=== PATIENT | female | born 1945 | race Caucasian/White ===

== ENCOUNTER 2018-03-07 09:45 | Outpatient (CLI) | payer MEDICARE, BC | END 2018-03-07 09:46 | disposition home or self-care (01) | LOC: BICMAMMO 09:45 | PROVIDERS: ATTEND Internal Medicine | DX: Z13.820 Encounter for screening for osteoporosis (principal); R92.8 Other abnormal and inconclusive findings on diagnostic imaging of breast; M85.852 Other specified disorders of bone density and structure, left thigh | CPT/HCPCS: 77066; 77080; G0279 ==

== ENCOUNTER 2019-06-27 23:05 | Observation (INO) | payer MEDICARE, BC ==
[~2019-06-27 23:05] MED LIST: ISOVUE-370 76%-LOCM 1 ML ONE
[2019-06-28] MEDS ORDERED: Aspirin Chewable 81 MG TAB ONE (00:18)
[2019-06-28] MEDS ORDERED: Ondansetron ODT 4 MG TAB SL PRN (02:28)
[2019-06-28] MEDS ORDERED: Ondansetron PF 4 MG/2 ML Vial IVP PRN (02:28)
[2019-06-28 03:30] VITALS: BMI 33.4
[2019-06-28 05:11] LABS: #Basophils 0.1 thou/uL (0.0-0.2); #Eosinphils 0.2 thou/uL (0.0-0.7); #Lymphocytes 2.2 thou/uL (1.20-3.40); #Monocytes 0.7 thou/uL (0.11-0.59); %Basophils 0.8 % (0.0-1.0); %Eosinophils 3.1 % (0.0-10.0); %Lymphocytes 30.6 % (21.0-51.0); %Monocytes 9.8 % (0.0-10.0); %Neutrophils 55.6 % (42.0-75.0); Hemoglobin 11.6 g/dL (12.0-16.0); Mean Corpuscular HGB CONC 33.8 g/dL (32.0-36.0); Mean Corpuscular Hemoglobin 30.5 pg (27.0-31.0); Mean Corpuscular Volume 90.4 fL (78.0-98.0); Mean Platelet Volume 7.7 fL (7.4-10.4); Platelet Count 226 thou/uL (130-400); RBC Distribution Width 11.4 % (11.5-14.5); Red Blood Cell (RBC) Count 3.81 mill/uL (4.20-5.40); White Blood Cell (WBC) Count 7.1 thou/uL (4.8-10.8)
[2019-06-28 05:43] LABS: ALT (SGPT) 13 U/L (8-55); AST (SGOT) 27 U/L (5-34); Albumin 3.9 g/dL (3.4-4.8); Alkaline Phosphatase 62 U/L (40-110); Anion Gap 12 mmol/L (10-20); BUN (Urea Nitrogen) 22 mg/dL (9.8-20.1); Bilirubin, Total 0.5 mg/dL (0.2-1.2); Calc. Creatinine Clearance 80 mL/min (70-130); Calcium 9.3 mg/dL (7.8-10.44); Carbon Dioxide 24 mmol/L (23-31); Cardiac Risk 2.8 (Less than 4.5); Chloride 105 mmol/L (98-107); Cholesterol 144 mg/dl (< 200 Desired); Estimated GFR-MDRD 70; Globulin 2.9 g/dL (2.4-3.5); Glucose 132 mg/dL (83-110); HDL Cholesterol 51 mg/dL (>60 Neg Risk); LDL Cholesterol, Calculated 76 mg/dL; Magnesium 1.7 mg/dL (1.6-2.6); Potassium 4.4 mmol/L (3.5-5.1); Protein, Total 6.8 g/dL (6.0-8.3); Sodium 137 mmol/L (136-145); Triglycerides 86 mg/dL (Less than 150)
[2019-06-28] MEDS ORDERED: Acetaminophen 325 MG TAB PO PRN (08:21)
[2019-06-28] MEDS ORDERED: Senokot S 8.6-50 MG TAB PO PRN (08:21)
[2019-06-28] MEDS ORDERED: Bisacodyl 10 MG SUPP PR PRN (08:21)
[2019-06-28] MEDS ORDERED: Dextrose 5% in Water 1,000 ML IV PRN (08:26)
[2019-06-28] MEDS ORDERED: Dextrose 50% Abboject 50 ML SYRINGE SLOW IVP PRN (08:26)
--- NOTE | 2019-06-28 08:33 | CT ---
PRELIMINARY REPORT/[facility]/EMERGENCY AFTER HOURS PROCEDURE: PROCEDURE INFORMATION: Exam: CT Abdomen And Pelvis With Contrast Exam date and time: 06/27/2019 11:57 PM Clinical history: 73 years old, female; ER 26. C/O lower abdominal, nausea, generalized weakness. No vomiting. Surgical HX: hysterectomy, cholecystectomy TECHNIQUE: Imaging protocol: Computed tomography of the abdomen and pelvis with intravenous contrast. COMPARISON: No relevant prior studies available. FINDINGS: Lungs: No acute infiltrate in either lung base. Liver: Normal. No mass. Gallbladder and bile ducts: Status post cholecystectomy. No biliary tract dilatation. Pancreas: Normal. No ductal dilation. Spleen: Normal. No splenomegaly. Adrenals: Normal. No mass. Kidneys and ureters: Normal. No hydronephrosis. Stomach and bowel: A few scattered colon diverticuli without evidence of diverticulitis. Appendix: No evidence of appendicitis. Intraperitoneal space: Unremarkable. No free air. No significant fluid collection. Vasculature: Unremarkable. No abdominal aortic aneurysm. Lymph nodes: Unremarkable. No enlarged lymph nodes. Bladder: Unremarkable as visualized. Reproductive: Status post hysterectomy. Bones/joints: Spinal degenerative changes. Lumbar levoscoliosis. Soft tissues: Small fat-containing umbilical hernia. IMPRESSION: 1. No acute intra-abdominal or pelvic process. 2. A few scattered colon diverticuli without evidence of diverticulitis. Thank you for allowing us to participate in the care of your patient. Dictated and Authenticated by: Rustam Lin MD 06/28/2019 12:40 AM Central Time ([place] & [place]) FINAL REPORT CT ABDOMEN AND PELVIS WITH IV CONTRAST: Liver, spleen, pancreas, kidneys, and bowel loops appear unremarkable. No acute intraabdominal proce ss identified. I am in agreement with the preliminary report.
[2019-06-28] MEDS: Escitalopram Oxalate 20 mg Tablet PO SCH (08:54)
[2019-06-28] MEDS: Loratadine 10 MG TAB PO SCH (08:54)
[2019-06-28] MEDS: Famotidine 20 MG TAB PO SCH ×2 (08:55→21:20)
[2019-06-28] MEDS: Enoxaparin Sodium 40 MG/0.4 ML SYRINGE SC SCH (08:57)
[2019-06-28] MEDS ORDERED: SELENIUM PO SCH (09:00)
[2019-06-28] MEDS ORDERED: ASTAXANTHIN PO SCH (09:00)
[2019-06-28] MEDS ORDERED: Aspirin Chewable 81 MG TAB PO SCH (09:00)
--- NOTE | 2019-06-28 09:18 | HP ---
PRIMARY CARE PHYSICIAN: Karen Nuno MD CHIEF COMPLAINT: Slurred speech and generalized weakness. HISTORY OF PRESENT ILLNESS: A 73-year-old female with past medical history significant for brain aneurysm, status post treatment; prior CVAs; diabetes; and hypertension; who was admitted on transfer through the ER from [facility] due to acute onset of slurred speech, slow mentation, and generalized weakness. The patient reportedly started feeling unwell yesterday and was noted by daughter to have slurred speech as well as slow mentation. She also was complaining of generalized weakness as well as abdominal pain described as heaviness. There was no focal weakness, but this was reminiscent of her prior stroke. The patient denied headache, nausea, vomiting, fever, chest pain, but admitted to exertional dyspnea. She also complained of abdominal pain, rated at 4/10, which has improved significantly currently. She has baseline left-sided numbness from prior CVA, which has not changed. Daughter reported that the patient is currently markedly improved, yesterday she had slurred speech and had slow mentation, but she is back to normal currently. She also complained of poor urinary stream as well as some lower abdominal tenderness, but denied dysuria, hematuria, nausea, vomiting, hematemesis, or change in bowel habit. The patient has history of diverticulosis, but noted that the current abdominal pain, which has resolved, is not similar to prior diverticulosis pain. She also denied dizziness, vertigo, loss of consciousness, or leg swelling. PAST MEDICAL HISTORY: 1. Diabetes mellitus. 2. Hypertension. 3. Prior CVAs. 4. Brain aneurysm. 5. Diverticulosis. 6. Obesity. PAST SURGICAL HISTORY: 1. Cholecystectomy. 2. Appendectomy. 3. Craniotomy with treatment of brain aneurysm. 4. Hysterectomy. 5. Tonsillectomy. FAMILY HISTORY: Reviewed, but noncontributory. SOCIAL HISTORY: The patient lives with daughter. Denied alcohol, tobacco, or recreational drug use. The patient is at baseline ambulates by herself and takes care of herself. She wants to be full code and daughter is the surrogate decision maker. ALLERGIES: REPORTS ALLERGIC REACTION TO PENICILLIN AND REACTION IS RASH. ALSO REPORTED SOME ALLERGIC REACTION TO BENZOCAINE. CURRENT HOME MEDICATIONS: 1. Alpha-Lipoic Acid 50 mg daily. 2. Ascorbic acid versus collagen 1 capsule p.o. daily. 3. Astaxanthin 4 mg p.o. daily. 4. Calcium carbonate with vitamin D one tablet p.o. daily. 5. Cetirizine 10 mg p.o. daily. 6. Plavix 75 mg p.o. daily at bedtime. 7. Lexapro 20 mg p.o. daily. 8. Fish oil 1 to 2 capsules p.o. daily at bedtime. 9. NPH insulin 70/30 of 25 units b.i.d. 10. Lisinopril 20 mg b.i.d. 11. Multivitamin with mineral, folic acid 1 tablet p.o. daily. 12. Zofran 4 mg p.o. p.r.n. 13. Selenium 50 mcg p.o. daily. 14. Ubidecarenone (coenzyme Q10) 30 mg p.o. daily. 15. Vitamin E 1 capsule p.o. daily. REVIEW OF SYSTEMS: 12-point review of systems performed, was negative other than pertinent positives and negatives included in the history of present illness. PHYSICAL EXAMINATION: VITAL SIGNS: Temperature 98.5, pulse 66, respiratory rate 16, SpO2 of 93% on room air, and blood pressure is 136/63. GENERAL: Obese elderly female, in no obvious distress. Afebrile. Anicteric. Acyanotic. HEENT: Normocephalic, atraumatic. Oral mucosa is moist. Face is symmetrical. Pupils are reacting to light. NECK: Short thick neck with excess subcutaneous tissue. No obvious JVD or masses appreciated. CARDIOVASCULAR: Regular rhythm and rate with normal heart sounds 1 and 2. RESPIRATORY: Good air entry bilaterally with no crackles or rhonchi or use of accessory muscles. GI: Abdomen is obese, soft, nondistended with normal bowel sounds. Mild lower abdominal tenderness noted. EXTREMITIES: Grossly normal looking, atraumatic, with no edema or erythema. ARTIST MANAGER: Conscious, alert and oriented x3 with appropriate mental status. Cranial nerves 2 through 12 are grossly intact. Face is symmetrical. The patient moves all extremities with symmetrical power of 5-/5. Mild decreased sensation to gross touch on the left side noted. DIAGNOSTIC DATA: CBC showed WBC count of 7.1, hemoglobin of 11.6, MCV of 90.4, and platelets of 226. CMP showed sodium 137, potassium 4.4, chloride 105, CO2 of 24, BUN 22, creatinine 0.81, glucose 132, calcium 9.3, magnesium 1.7, total bilirubin 0.5, AST 27, ALT 13, alkaline phosphatase 62, total protein 6.8, and albumin 3.9. Initial troponin performed yesterday was 0.010. EKG showed sinus bradycardia with rate of 58. No obvious ischemic changes were noted. Chest x-ray showed no acute pathology. CT scan of the brain also showed no acute intracranial abnormality. CT scan of the abdomen and pelvis is pending at this time. ASSESSMENT: 1. Transient ischemic attack. The patient reported some slurred speech and slow mentation as well as generalized weakness, which has improved at this time. She seems back to baseline. Acute metabolic encephalopathy is a concern given urinary symptom of poor stream as well as abdominal pain. 2. Possible acute metabolic encephalopathy. 3. Transient physical deconditioning. 4. Diabetes mellitus, on treatment. 5. Hypertension, adequately controlled. 6. Prior CVAs with mild residual left-sided numbness. 7. Prior brain aneurysm, status post repair. PLAN: 1. We will get MRI of the brain. We will also get echocardiogram of the heart. 2. We will add aspirin to Plavix. 3. We will start sliding scale insulin to get adequate glycemic control. 4. We will monitor blood pressure and restart antihypertensive if needed. 5. We will also get urinalysis with reflex to culture. We will review CT scan of the abdomen with pelvis when available. Further treatment to follow depending on review of other diagnostic tests and hospital course. 6. Code status full code. Daughter is the surrogate decision maker. Job ID: [id number]
[2019-06-28 09:56] LABS: Troponin I 0.012 ng/mL (< 0.028)
[2019-06-28] MEDS: Aspirin 81 mg Enteric Coated Tablet PO SCH (10:01)
[2019-06-28] MEDS: HumaLOG 300 UNITS/3 ML VIAL SC PRN ×3 (11:31→21:20)
--- NOTE | 2019-06-28 12:47 | MRI ---
MRI BRAIN NONCONTRAST: DATE: 06/28/2019 HISTORY: 73 year old female with dysarthria and left upper extremity weakness. Rule out CVA. FINDINGS: The ventricles are normal in size and configuration. There is an approximately 1.7 x 0.4 cm focus of encephalomalacia and gliosis in the left moreno radiata just lateral to the caudate nucleus. There is no other major intra-axial signal abnormality, restricted diffusion, midline shift or any other ma ss effect, recent intra-axial hemorrhage, or extra-axial fluid collection. There is an aneurysm clip near the right carotid terminus. There are old right frontotemporal craniotomy changes. IMPRESSION: 1) old lacunar infarction of left cerebral deep white matter. 2.) Status post aneurysm clipping at right anterior circulation via the right pterional craniotomy. 3) no acute intracranial findings.
--- NOTE | 2019-06-28 12:58 | MRI ---
Magnetic resonance angiogram MRA head noncontrast: DATE: 06/28/2019 HISTORY: 73-year-old female with acute stroke symptoms. TECHNIQUE: 3-D [id number] MRA acquired in multiple axial slabs through [employer] [place]. Source images and 3 -D MIP reconstructions evaluated. FINDINGS: Aneurysm clip at right anterior circulation results in magnetic susceptibility artifact causing blowo ut and nonvisualization of the right carotid terminus and the proximal portion of M1 segment of right MCA, and most of the A1 segment of right INGA. The degree of magnetic susceptibility artifact is not severe, indicating that this clip is nonferromagnetic. In the vessels that are visualized, there is no evidence of aneurysm greater than 3 mm. There is no evidence of high-grade stenosis or oc clusion involving the posterior circulation or anterior circulation. IMPRESSION: 1. 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 2. Otherwise negative.
--- NOTE | 2019-06-28 13:30 | ULT ---
Ultrasound Doppler duplex carotid: DATE: 06/28/2019 HISTORY: 73-year-old female with dysarthria and left upper extremity weakness: Stroke symptoms. TIA versus CVA . TECHNIQUE: Grayscale, color-flow, and spectral analysis, of major arteries of neck. FINDINGS: Mild atherosclerotic plaque at bilateral carotid bulbs extending into internal and external carotid a rteries. Highest peak systolic velocities in the internal carotid arteries are 65 cm/s on the right and 90 cm/ s on the left. Left vertebral artery flow is antegrade. Right vertebral artery flow not detected. IMPRESSION: 1. At least mild atherosclerosis of carotid arteries bilaterally. 2. Right vertebral artery not visualized. 3. No evidence of hemodynamically significant stenosis in the cervical portions of the internal carot id arteries.
[2019-06-28 15:05] LABS: Bacteria/HPF None Seen HPF (None Seen); Bilirubin Negative (Negative); Blood, Urine Negative (Negative); Clarity Clear (Clear); Glucose, Urine (Dipstick) Normal (Negative); Leukocyte Negative Leu/uL (Negative); Nitrite Negative (Negative); Protein, Urine (Dipstick) Negative (Neg-Trace); RBC/HPF 0-3 HPF (0-3); Squamous Epithelial None Seen HPF (0-3); Urobilinogen Normal mg/dL (Less than 2); WBC/HPF None Seen HPF (0-3)
[2019-06-28 15:06] LABS: Urine Culture Reflex No No
[2019-06-28] MEDS ORDERED: FLU VACC TS2019-20(65YR UP)/PF 180 MCG/0.5 ML SYRINGE IM ONE (21:00)
[2019-06-28] MEDS ORDERED: Clopidogrel Bisulfate 75 MG TAB PO SCH (21:00)
[2019-06-28] MEDS ORDERED: Atorvastatin Calcium 40 MG TAB PO SCH (21:00)
[2019-06-29] MEDS: HumaLOG 300 UNITS/3 ML VIAL SC PRN ×2 (06:26→11:37)
[2019-06-29] MEDS: Aspirin 81 mg Enteric Coated Tablet PO SCH (09:39)
[2019-06-29] MEDS: Famotidine 20 MG TAB PO SCH (09:39)
[2019-06-29] MEDS: Loratadine 10 MG TAB PO SCH (09:39)
[2019-06-29] MEDS: Escitalopram Oxalate 20 mg Tablet PO SCH (09:39)
[2019-06-29] MEDS: Enoxaparin Sodium 40 MG/0.4 ML SYRINGE SC SCH (09:39)
--- NOTE | 2019-06-29 11:30 | PDOC.EVN ---
Event Note - Event Note Event Note: discharge summary dictated. #[id number]
[2019-06-29 11:39] VITALS: TEMP 98
[2019-06-29] MEDS ORDERED: Lisinopril 20 MG TAB PO SCH (11:45)
--- NOTE | 2019-06-29 12:04 | DIS ---
DATE OF ADMISSION: 06/28/2019 DATE OF DISCHARGE: 06/29/2019 PRIMARY CARE PHYSICIAN: Dr. Karen Nuno. DISCHARGE DIAGNOSES: 1. Transient ischemic attack. 2. Physical deconditioning. 3. Diabetes mellitus, on treatment. 4. Hypertension, on treatment. 5. History of brain aneurysm, status post repair. 6. Prior cerebrovascular accidents with mild residual left-sided numbness. 7. Obesity. 8. Diverticulosis. HOSPITAL COURSE: A 73-year-old female with past medical history significant for brain aneurysm, status post treatment, prior CVAs, diabetes, and hypertension, admitted on transfer from [facility] due to acute onset of slurred speech, slow mentation, and generalized weakness. Symptoms soon improved overnight with the patient's verbalizing appropriately and ambulating well. Impression of TIA was made to rule out acute CVA. However, further evaluation with MRI of the brain as well as MRA of the brain showed no acute pathology. However, the patient was found to have mild atherosclerosis on carotid Dopplers. Echocardiogram performed also showed mild mitral regurgitation with normal ejection fraction. Possible acute encephalopathy was considered from possible UTI, but urinalysis was unremarkable. The patient remained stable and was subsequently discharged home. PHYSICAL EXAMINATION: VITAL SIGNS: Temperature 98.1, pulse 72, respiratory rate 16, SpO2 of 95% on room air, blood pressure is 137/88. GENERAL: Healthy-looking elderly female, in no distress. Afebrile. Anicteric. Acyanotic. HEENT: Normocephalic, atraumatic. Oral mucosa is moist. CARDIOVASCULAR: Regular rhythm and rate with normal heart sounds 1 and 2. RESPIRATORY: Good air entry bilaterally with no crackle or rhonchi or use of accessory muscles. GI: Full, soft, nontender, nondistended with normal bowel sounds. Mild lower abdominal tenderness appreciated. EXTREMITIES: Grossly normal looking, atraumatic with no edema or erythema. SHEET METAL CONTRACTOR: Conscious, alert, oriented x3 with appropriate mental status. Cranial nerves 2 through 12 are grossly intact. The patient is ambulant. DISCHARGE CONDITION: Improved. DISCHARGE DISPOSITION: Home. DISCHARGE MEDICATIONS: 1. Alpha-lipoic acid 50 mg p.o. daily. 2. Ascorbic acid with collagen 1 capsule p.o. daily. 3. Astaxanthin 4 mg p.o. daily. 4. Calcium with vitamin D 1 tablet daily. 5. Zyrtec 10 mg p.o. daily. 6. Plavix 75 mg p.o. daily at bedtime. 7. Lexapro 20 mg p.o. daily. 8. Fish oil 2 capsules p.o. daily at bedtime. 9. Insulin NPH 70/30, 25 units subcutaneously b.i.d. 10. Lisinopril 20 mg p.o. b.i.d. 11. Multivitamin with iron, folic acid 1 tablet p.o. daily. 12. Zofran p.r.n. 13. Selenium 50 mcg p.o. daily. 14. CoQ10 of 30 mg p.o. daily. 15. Vitamin E 100 mg p.o. daily. 16. Aspirin 81 mg p.o. daily. 17. Lipitor 40 mg p.o. daily at bedtime. FOLLOWUP: Follow up with PCP in 1 week. Job ID: [id number]
[2019-06-29 15:50] VITALS: BP 150/70
== END 2019-06-29 14:08 | disposition home or self-care (01) ==
LOC: ERS 23:05 → 2SE 06-28 01:44
PROVIDERS: ADMIT Internal Medicine; ATTEND Internal Medicine
DX: G45.9 Transient cerebral ischemic attack, unspecified (principal); E11.9 Type 2 diabetes mellitus without complications; I10 Essential (primary) hypertension; I69.398 Other sequelae of cerebral infarction; R20.0 Anesthesia of skin; K57.30 Diverticulosis of large intestine without perforation or abscess without bleeding; E66.9 Obesity, unspecified; Z68.33 Body mass index [BMI] 33.0-33.9, adult; Z79.02 Long term (current) use of antithrombotics/antiplatelets; Z79.4 Long term (current) use of insulin; Z79.899 Other long term (current) drug therapy; Z88.0 Allergy status to penicillin; Z88.8 Allergy status to other drugs, medicaments and biological substances; Z98.890 Other specified postprocedural states
CPT/HCPCS: 70544; 70551; 74177; 80053; 80061; 81001; 82607; 82746; 82962 ×2; 83735; 84484; 85025; 90662; 93005; 93306; 93880; 96372 ×2; 97116; 97139 ×3; 99285; G0008; G0378 ×3; 36415; 36416; 90471; J1650; Q9966

== ENCOUNTER 2020-05-27 10:40 | Outpatient (CLI) | payer MEDICARE, BC ==
--- NOTE | 2020-05-27 11:20 | MMO ---
Bilateral MAMMO Bilat Screen [facility]. CLINICAL HISTORY: Patient is 74 years old and is seen for screening. The patient has no family history of breast cancer. The patient has no personal history of cancer. VIEWS: The views performed were: bilateral craniocaudal with tomosynthesis and bilateral mediolateral oblique with tomosynthesis. FILMS COMPARED: The present examination has been compared to a prior imaging study performed at [facility] on 03/07/2018. This study has been interpreted with the assistance of computer-aided detection. MAMMOGRAM FINDINGS: There are scattered fibroglandular densities. There are stable benign appearing calcifications seen in both breasts. There are no suspicious masses, suspicious calcifications, or new areas of architectural distortion. IMPRESSION: THERE IS NO MAMMOGRAPHIC EVIDENCE OF MALIGNANCY. A ROUTINE FOLLOW-UP MAMMOGRAM IN 1 YEAR IS RECOMMENDED. THE RESULTS OF THIS EXAM WERE SENT TO THE PATIENT. ACR BI-RADS Category 2 - Benign finding MAMMOGRAPHY NOTE: 1. A negative mammogram report should not delay a biopsy if a dominant of clinically suspicious mass is present. 2. Approximately 10% to 15% of breast cancers are not detected by mammography. 3. Adenosis and dense breasts may obscure an underlying neoplasm. Reported by: REAL TINOCO MD Electonically Signed: [id number]
== END 2020-05-27 10:41 | disposition home or self-care (01) ==
LOC: BICMAMMO 10:40
PROVIDERS: ATTEND Internal Medicine
DX: Z12.31 Encounter for screening mammogram for malignant neoplasm of breast (principal)
CPT/HCPCS: 77063; 77067

== ENCOUNTER 2020-09-01 08:55 | Outpatient (CLI) | payer MEDICARE, BC ==
--- NOTE | 2020-09-01 10:27 | BD ---
DEXA BONE DENSITOMETRY: (Dual energy x-ray absorptiometry) DATE: 09/01/2020 HISTORY: 74-year old white female for age-related, post-menopausal, osteoporosis screening. Weight: 186 lbs Height: 61 in. Age of menopause: 28 COMPARISON: None available. FINDINGS: The bone mineral density (BMD) is given in grams per square centimeter (g/cm2): LUMBAR SPINE: BMD (g/cm^2) T score Z score L1: 0.861 -1.2 0.9 L2: 1.142 1.0 3.3 L3: 1.189 1.0 3.4 L4: 1.144 0.8 3.3 Total: 1.090 0.4 2.7 Comment: There is prominent asymmetrical right-sided sclerosis involving L2 and L3 due to the concavity of cur vature of a levoscoliosis. The sclerosis elevates the BMD at those levels, elevating the T scores. This could result in underestimation of the lumbar spine fracture risk. The L1 BMD and T score are in the osteopenic range. However, the L4 BMD and T score are in the normal range. Fracture risk is difficult to ascertain. HIP: BMD (g/cm^2) T score Z score Femoral neck: 0.693 -1.4 0.6 Total: 0.901 -0.3 1.4 FRAX WHO fracture risk assessment tool: 10 year fracture risk* Major osteoporotic fracture: 15 % Hip fracture: 2.4 % Reported risk factors: [place] (), neck BMD = 0.693 (g/cm^2), BMI = 35.1, and previous fracture. *Fracture probability is calculated for an untreated patient. Fracture probability may be lower if th e patient has received treatment. IMPRESSION: 1.) The mean bone mineral density of the lumbar spine is in the normal range. However, see comments a kelechi. 2) The bone mineral density of the femoral neck is osteopenic. Fracture risk is increased.
== END 2020-09-01 08:56 | disposition home or self-care (01) ==
LOC: BICMAMMO 08:55
PROVIDERS: ATTEND Internal Medicine
DX: Z13.820 Encounter for screening for osteoporosis (principal); E23.0 Hypopituitarism; M85.859 Other specified disorders of bone density and structure, unspecified thigh; Z78.0 Asymptomatic menopausal state
CPT/HCPCS: 77080